=== PATIENT | female | born 1990 | race Caucasian/White ===

== ENCOUNTER 2016-04-26 06:33 | Inpatient (IN) | payer OTHER ==
[2016-04-26] VITALS (28 sets, daily range): BP systolic 120–163; BP diastolic 56–91
[~2016-04-26] VITALS: Ht 172.7 cm; Wt 88.4 kg
[~2016-04-26 06:33] MED LIST: TUMS500 MG PO
[2016-04-26] MEDS ORDERED: MUCINEX COLD-F177 ML PO (07:09)
[2016-04-26 07:58] LABS: MCH 23.2 PG (29.0-34.0); MCHC 32.4 G/DL (30.0-36.0); MCV 71.4 FL (83-99); MEAN PLAT.VOLUME 10.5 uM^3 (9.5-12.4); PLATELET COUNT 309 K/uL (156-360); RBC DIS.WIDTH-CV 14.3 % (11.8-14.6); RBC DIS.WIDTH-SD 35.6 % (39-53); RED BLOOD COUNT 4.06 M/uL (3.80-5.20)
[2016-04-26 08:02] LABS: EOSINOPHIL (%) 1.9 % (0-5); EOSINOPHIL COUNT 0.1 K/uL (0-0.3); IMMATURE GRANULOCYTE (%) 0.3 % (0.0-0.7); IMMATURE GRANULOCYTE COUNT 0.2 K/uL; LYMPHOCYTE COUNT 1.9 K/uL (1.0-2.8); MONOCYTE (%) 7.7 % (3-12); MONOCYTE COUNT 0.5 K/uL (0-0.8); NEUTROPHIL (%) 62.6 % (45-76); NEUTROPHIL COUNT 4.4 K/uL (1.8-6.4)
[2016-04-26] MEDS ORDERED: IBUPROFEN800 MG PO (14:25)
[2016-04-27 07:42] VITALS: BP 124/79
[2016-04-27 15:16] VITALS: BP 118/84
== END 2016-04-27 17:50 | disposition home or self-care (01) | DRG 774 ==
LOC: LDRP-OP 06:33 → 2WEST 06:34 → LDRP-OP 10:54 → 2WEST 14:06 → LDRP-OP 06-02 21:45
PROVIDERS: Obstetrics & Gynecology
PROC: 3E0S3GC Introduction of Other Therapeutic Substance into Epidural Space, Percutaneous Approach (ICD-10-PCS; principal; 2016-04-26)
PROC: 00HU33Z Insertion of Infusion Device into Spinal Canal, Percutaneous Approach (ICD-10-PCS; principal; 2016-04-26)
PROC: 10907ZC Drainage of Amniotic Fluid, Therapeutic from Products of Conception, Via Natural or Artificial Opening (ICD-10-PCS; principal; 2016-04-26)
PROC: 3E033VJ Introduction of Other Hormone into Peripheral Vein, Percutaneous Approach (ICD-10-PCS; principal; 2016-04-26)
PROC: 10E0XZZ Delivery of Products of Conception, External Approach (ICD-10-PCS; principal; 2016-04-26)
PROC: 3E0S3CZ (ICD-10-PCS; principal; 2016-04-26)
DX: O69.81X0 Labor and delivery complicated by cord around neck, without compression, not applicable or unspecified (principal); O74.5 Spinal and epidural anesthesia-induced headache during labor and delivery; Z3A.39 39 weeks gestation of pregnancy; Z37.0 Single live birth; D50.9 Iron deficiency anemia, unspecified; O99.02 Anemia complicating childbirth
CPT/HCPCS: 85025; C1755; J3010; J7120